=== PATIENT | female | born 1965 | race Asian ===

== ENCOUNTER 2017-04-20 09:44 | Outpatient (CLI) | payer OTHER ==
--- NOTE | 2017-04-20 13:09 | MRI Report ---
EXAM: LEFT KNEE MRI WITHOUT CONTRAST EXAM DATE: 04/20/2017 10:50 AM. CLINICAL HISTORY: Skiing injury December 2016. Posterior and medial pain. COMPARISON: None. TECHNIQUE: Multiplanar, multisequence T1-weighted and fluid-sensitive sequences of the knee without c ontrast. Other: None. FINDINGS: Cruciate ligaments: The anterior and posterior cruciate ligaments appear intact. There is some hetero genous signal involving the upper portion of the anterior cruciate ligament which could represent par tial tear at the femoral attachment. Medial meniscus: Intact. No tear is identified. Lateral meniscus: Intact. No tear is identified. Collateral ligaments: There is severe thickening, abnormal signal and morphology involving the upper fibers of the medial collateral ligament. Majority of fibers appear torn with a small number of fiber s remaining intact most consistent with a severe grade 2 injury. Fibular collateral ligament appears intact. Bones and articular surfaces: Mild cartilage thinning and irregularity in the patellofemoral compartm ent with small amount of patellar subchondral bone marrow edema. Minimal cartilage thinning in the me dial compartment. Small areas of marrow edema at the posterior margin of the lateral tibial plateau a nd periphery of the mid lateral femoral condyle. IMPRESSION: 1. Abnormal signal and morphology at the upper portion of the anterior cruciate ligament concerning f or at least partial tear. The presence of small residual bone contusions at the lateral tibial platea u and lateral femoral condyle raise possibility of a previous full-thickness ACL tear. Correlate with exam. 2. Severe grade 2 tear of the medial collateral ligament. [facility] MUSCULOSKELETAL RADIOLOGY SECTION Referring Provider Line: [phone] SITE ID: [id number]
== END 2017-04-20 09:45 | disposition home or self-care (01) ==
LOC: DI 09:44
PROVIDERS: ATTEND Family Medicine
DX: S83.412A Sprain of medial collateral ligament of left knee, initial encounter (principal)

== ENCOUNTER 2019-11-10 11:30 | Outpatient (CLI) | payer OTHER ==
[2019-11-10 12:23] LABS: BILIRUBIN,URINE NEGATIVE (NEGATIVE); GLUCOSE, URINE (UA) NEGATIVE (NEGATIVE); KETONES,URINE (UA) NEGATIVE (NEGATIVE); LEUKOCYTE ESTERASE, URINE NEGATIVE (NEGATIVE); NITRITE,URINE NEGATIVE (NEGATIVE); OCCULT BLOOD,URINE SMALL (NEGATIVE); PH,URINE 5.5 PH (5.0-7.5); PROTEIN,URINE NEGATIVE (NEGATIVE); UROBILINOGEN,URINE 0.2 (NORMAL) E.U./dL (NORMAL)
[2019-11-10 12:31] LABS: CALCIUM 9.2 mg/dL (8.5-10.3); CREATININE 0.7 mg/dL (0.4-1.0)
[2019-11-10 12:45] LABS: CLARITY,URINE CLEAR (CLEAR); HCG UR QUAL NEGATIVE
[2019-11-10 12:56] LABS: BACTERIA,URINE None Seen /HPF (None Seen); RBC,URINE 0-5 /HPF (0-5); SQUAMOUS EPITHELIAL CELL,UR NONE SEEN (<= Few)
[2019-11-10 13:08] LABS: BASOPHILS # (AUTO) 0.1 10^3/uL (0.0-0.1); BASOPHILS % (AUTO) 1.7 %; EOSINOPHILS # (AUTO) 0.4 10^3/uL (0.0-0.7); EOSINOPHILS % (AUTO) 8.9 %; HGB - HEMOGLOBIN 12.8 g/dL (12.0-16.0); LYMPHOCYTES # (AUTO) 1.4 10^3/uL (1.5-3.5); LYMPHOCYTES % (AUTO) 29.7 %; MEAN CORPUSCULAR HEMOGLOBIN 32.2 pg (27.0-31.0); MEAN CORPUSCULAR HGB CONC 33.1 g/dL (32.0-36.0); MEAN CORPUSCULAR VOLUME 97.5 fL (81.0-99.0); MEAN PLATELET VOLUME 9.9 fL (7.9-10.8); MONOCYTES # (AUTO) 0.4 10^3/uL (0.0-1.0); NEUTROPHILS # (AUTO) 2.4 10^3/uL (1.5-6.6); NEUTROPHILS % (AUTO) 51.5 %; PLT - PLATELET COUNT 317 10^3/uL (130-450); RED BLOOD COUNT 3.97 10^6/uL (4.20-5.40); RED CELL DISTRIBUTION WIDTH 11.9 % (12.0-15.0); WHITE BLOOD COUNT 4.7 x10^3/uL (4.8-10.8)
== END 2019-11-10 11:31 | disposition home or self-care (01) ==
LOC: DI 11:30
PROVIDERS: ATTEND Obstetrics & Gynecology
DX: Z01.812 Encounter for preprocedural laboratory examination (principal); N93.9 Abnormal uterine and vaginal bleeding, unspecified
CPT/HCPCS: 36415; 80048; 81001; 81025; 85025; 86850; 86900; 86901

== ENCOUNTER 2019-11-12 07:30 | Inpatient (IN) | payer OTHER ==
[2019-11-12] MEDS ORDERED: CEFAZOLIN SODIUM IN 0.9 % NACL 2 GM/100 ML BAG IV ONE (10:14)
[2019-11-12 11:12] LABS: HCG UR QUAL NEGATIVE
[2019-11-12] MEDS ORDERED: LACTATED RINGERS 1,000 ML IV ONE ×2 (11:17→18:33)
[2019-11-12] MEDS ORDERED: METOCLOPRAMIDE 10 MG/2 ML VIAL IVP PRN (11:31)
[2019-11-12] MEDS ORDERED: ONDANSETRON 4 MG/2 ML VIAL IVP PRN ×2 (11:31→19:05)
[2019-11-12] MEDS ORDERED: NALOXONE 0.4 MG/ML VIAL IVP PRN (11:31)
[2019-11-12] MEDS ORDERED: HYDROmorphone 0.5 MG/0.5 ML SYRINGE IVP PRN (11:31)
[2019-11-12] MEDS ORDERED: ATROPINE ABBOJECT 1 MG/10 ML SYRINGE IVP PRN (11:31)
[2019-11-12] MEDS ORDERED: fentaNYL 100 MCG/2 ML VIAL IVP PRN (11:31)
[2019-11-12] MEDS ORDERED: MORPHINE 2 MG/ML CARPUJECT IVP PRN (11:31)
[2019-11-12] MEDS ORDERED: ePHEDrine 50 MG/ML VIAL IVP PRN (11:31)
--- NOTE | 2019-11-12 11:31 | ANESTHESIA ---
Pre-Anesthesia VS, & Labs - Diagnosis AUB with simple hyperplasia without atypia - Procedure Total Laparoscopic Hysterectomy Vital Signs: Temp Pulse Resp BP Pulse Ox 36.8 C 50 L 16 119/67 100 11/12/19 10:30 11/12/19 10:30 11/12/19 10:30 11/12/19 10:30 11/12/19 10:30 Height 5 ft 1.81 in Weight (kg) 58.8 kg - NPO >8 hours - Is Patient ?: No - Lab Results Lab results reviewed: Yes Home Medications and Allergies Home Medications: Ambulatory Orders Albuterol Sulfate [Albuterol Sulfate Hfa] 8.5 gm IH PRN PRN 11/08/19 Dupilumab [Dupixent Syringe] 300 mg SQ 11/08/19 Fluticasone/Salmeterol [Advair 100-50 Diskus] 1 each IH 11/08/19 Venlafaxine [Effexor] 37.5 mg PO DAILY 11/08/19 Albuterol Sulfate [Albuterol Sulfate Hfa] 8.5 gm IH PRN PRN 11/08/19 Dupilumab [Dupixent Syringe] 300 mg SQ 11/08/19 Fluticasone/Salmeterol [Advair 100-50 Diskus] 1 each IH 11/08/19 Venlafaxine [Effexor] 37.5 mg PO DAILY 11/08/19 Allergies/Adverse Reactions: Allergies Allergy/AdvReac Type Severity Reaction Status Date / Time No Known Drug Allergies Allergy Verified 11/08/19 14:41 Anes History & Medical History - Anesthetic History Anesthesia Complications: reports: Slow wake-up Family history of Anesthesia Complications: Denies Family history of Malignant Hyperthermia: Denies - Medical History Cardiovascular: reports: Other Pulmonary: reports: Asthma Gastrointestinal: reports: None Urinary: reports: None Musculoskeletal: reports: None Endocrine/Autoimmune: reports: None Skin: reports: Other - Surgical History General: Colonoscopy, EGD Orthopedic: Arthroscopic surgery Exam General: Alert, Oriented x3, Cooperative, No acute distress Dental: WNL Mouth Openin Fingerbreadth Neck Mobility: Normal Mallampati classification: I Respiratory: Lungs clear, Normal breath sounds, No respiratory distress, No accessory muscle use Cardiovascular: Regular rate, Normal S1, Normal S2, No murmurs Plan Anesthesia Type: General Consent for Procedure(s) Verified and Reviewed: Yes Code Status: Attempt Resuscitation ASA classification: 2-Mild systemic disease Is this case an emergency?: No
[2019-11-12] MEDS ORDERED: LACTATED RINGERS 1,000 ML IV SCH ×2 (12:00→20:00)
[2019-11-12] MEDS ORDERED: BUPIVACAINE 0.25%-EPI 1:200000 PF 30 ML VIAL ONE (15:56)
[2019-11-12] MEDS ORDERED: BUPIVACAINE 0.25%-EPI 1:200000 PF 30 ML VIAL SUBQ ONE ×2 (15:58)
--- NOTE | 2019-11-12 18:58 | ANESTHESIA POST OP EVALUATION ---
Anesthesia Post Eval - Post Anesthesia Eval Vitals: Last Vital Signs Temp 36.8 C 11/12/19 18:52 Pulse 58 L 11/12/19 18:52 Resp 12 11/12/19 18:52 BP 133/70 H 11/12/19 18:52 Pulse Ox 95 11/12/19 18:52 CV Function Including HR & BP: positive: Stable Pain Control: positive: Satisfactory Nausea & Vomiting: positive: Negative Mental Status: positive: Patient Participates Respiratory Status: Airway Patent Hydration Status: Satisfactory Anesthesia Complications: positive: None
[2019-11-12] MEDS ORDERED: ALBUTEROL NEB 2.5 MG/3 ML INH PRN (19:02)
--- NOTE | 2019-11-12 19:11 | OPERATIVE REPORT ---
Operative Report - General Admit Date: 11/12/19 Procedure Date: 11/12/19 Planned Procedure: Total Laparoscopic Hysterectomy, bilateral salpingo-oophorectomy, cystoscopy Pre-Op Diagnosis: Abnormal uterine bleeding, simple endometrial hyperplasia without atypia Procedure Performed: Total Laparoscopic Hysterectomy, Bilateral Salpingo-oophorectomy, cystoscopy Post Op Diagnosis: Same as above - Procedure Note Primary Surgeon: Sun Secondary Surgeon: Chemo Anesthesia Provider: Ran Anesthesia Technique: General ET tube Pathology: 1. Uterus and cervix 2. Right ovary and fallopian tube 3. Left ovary and fallopian tube IV Fluids (mL): 1,500 (Lactated Ringers) Estimated Blood Loss (mL): 50 Urine Output (mL): 200 Indications: 54 year old female with abnormal uterine bleeding and simple endometrial hyperplasia without atypia on endometrial biopsy. Recommended for hysterectomy; she desired bilateral salpingo-oophorectomy at time hysterectomy as well. Patient was counseled and consented for the procedure. Findings: Exam under anesthesia: Approximately 9 week sized uterus, anteverted, with normal shape and contour. No adnexal masses. Laparoscopy: Uterus sounded to 9cm. Enlarged uterus, otherwise normal. Normal bilateral fallopian tubes and ovaries. Liver edge with mild superficial scarring. Normal gallbladder. Appendix not visualized. Cystoscopy: Intact bladder without sutures or defects. Brisk efflux of urine from bilateral ureteral orifices visualized. Complications: None - Other Other Information/Narrative: PROCEDURE: The patient was taken to the Operating Room. General anesthesia was performed without difficulty. She was placed in the lithotomy position in yellow-fin stirrups. The abdomen and vagina were prepped and draped in the usual sterile fashion. A Bailey catheter was placed. A surgical time out was performed. The uterus was sounded and cervix measured. The [employer]cul[employer] Nursing Techn with 4cm REKHA cup uterine manipulator was placed without difficulty, and attached to the [employer] Uterine Positioning System. Attention was turned to the patients abdomen where local skin anesthesia was injected at the planned umbilical and bilateral port sites. A 5 mm incision was made in the umbilicus with the scalpel blade. A 5mm incision was made at the inferior pole of the umbilicus, Veress needle placed and entry into the abdomen was confirmed with initial entry pressure of 3mm Hg. Pneumoperitoneum was obtained with maximum pressure of 15mm Hg. Entry into the abdominal cavity was performed with direct laparoscopic visualization with a disposable 5 mm trocar through the umbilical incision. Survey of the abdomen and pelvis revealed findings as noted above. Two 5 mm trocars were placed at the right and left lower quadrants. The 5 mm Ligasure forceps were then used for dissection. First the ureters were identified bilaterally coursing well below the infundibulopelvic and uteroovarian ligaments bilaterally. The infundibuloplevic, uteroovarian, and round ligaments were taken on the patients left, and the left adnexa detached from the uterus. A bladder flap was created by dissecting past the round ligament over the cervix from left to right. Dissection was then carried down to the uterine vessels. The infundibulopelvic, round and uteroovarian ligaments were taken on the right, adnexa detached, and bladder flap completed, and bladder bluntly dissected further caudad. Dissection then was carried down past the uterine vessels on the right to the cuff. The uterine vessels were then dissected on the patients left, and dissection carried to the cuff. Next, after the vaginal cuff balloon on the uterine manipulator was inflated, the vaginal cuff was incised circumferentially using the Bovie hook, starting midline posteriorly, and working around anteriorly to the midline from the patients right. The dissection was continued posteriorly over the patients left to meet anteriorly in the midline. The uterus and cervix were thus completely detached, and the uterus, cervix, and bilateral adnexa were withdrawn through the vagina and passed off the field. A sterile glove was placed in the vagina to maintain pneumoperitoneum. The pelvis was irrigated and all dissection sites found to be hemostatic. The ureters were again identified bilaterally, coursing below the field of dissection. The RLQ trocar was removed and the skin incision was extended to fit an 11mm trocar, which was inserted under direct visualization. The vaginal cuff was closed with the endostitch forceps, from patients left to right using 0 Polysorb V-loc suture. The RLQ trocar was removed. The Joselo-Elizabeth device was used to close the RLQ port fascia using 0 vicryl. The pneumoperitoneum was released. The glove was removed from the vagina and the bailey catheter removed. A diagnostic cystoscope was performed using a 70 degree cystoscope with saline distending medium. Approximately 300 mL of fluid was used to distend the bladder. The bladder mucosa was evaluated and noted to be free of injury or suture material. Bilateral efflux of urine was seen from bilateral ureteral orifices. The cystoscope was removed and the bailey catheter replaced. The remaining 5mm trocars were removed from the abdomen. All incision sites were closed with 4-0 monocryl in subcuticular fashion and covered with Dermbond. The patient was then taken out of lithotomy position, undraped and put into the supine position, awoken and then transferred to the Post-Anesthesia Care Unit in stable condition. All counts were read as correct at the end of the case.
[2019-11-12] MEDS: LACTATED RINGERS 1,000 ML IV SCH (19:58)
[2019-11-12] MEDS ORDERED: KETOROLAC 30 MG/ML VIAL IVP SCH (20:00)
[2019-11-12] MEDS: ACETAMINOPHEN 500 MG TABLET PO SCH (20:10)
[2019-11-12] MEDS: SIMETHICONE CHEW 80 MG TABLET PO SCH (21:17)
[2019-11-12] MEDS: DOCUSATE SODIUM 100 MG CAPSULE PO SCH (21:17)
[2019-11-12] MEDS: MORPHINE 10 MG/ML VIAL IVP PRN (21:49)
[2019-11-13] MEDS: KETOROLAC 30 MG/ML VIAL IVP SCH ×4 (01:34→18:08)
[2019-11-13] MEDS: ACETAMINOPHEN 500 MG TABLET PO SCH ×2 (04:51→11:58)
[2019-11-13 05:22] LABS: BASOPHILS % (AUTO) 0.4 %; HGB - HEMOGLOBIN 11.5 g/dL (12.0-16.0); LYMPHOCYTES % (AUTO) 9.1 %; MEAN CORPUSCULAR HEMOGLOBIN 32.9 pg (27.0-31.0); MEAN CORPUSCULAR HGB CONC 33.4 g/dL (32.0-36.0); MEAN CORPUSCULAR VOLUME 98.3 fL (81.0-99.0); MEAN PLATELET VOLUME 9.5 fL (7.9-10.8); MONOCYTES # (AUTO) 0.6 10^3/uL (0.0-1.0); MONOCYTES % (AUTO) 5.5 %; NEUTROPHILS # (AUTO) 9.3 10^3/uL (1.5-6.6); NEUTROPHILS % (AUTO) 84.4 %; PLT - PLATELET COUNT 237 10^3/uL (130-450); RED CELL DISTRIBUTION WIDTH 11.9 % (12.0-15.0); WHITE BLOOD COUNT 11.1 x10^3/uL (4.8-10.8)
[2019-11-13] MEDS: LACTATED RINGERS 1,000 ML IV SCH (06:31)
[2019-11-13] MEDS: SIMETHICONE CHEW 80 MG TABLET PO SCH ×2 (06:32→13:46)
[2019-11-13] MEDS ORDERED: DEXAMETHASONE 4 MG/ML VIAL IVP ONE (08:09)
[2019-11-13] MEDS ORDERED: LIDOCAINE-MPF 2% 5 ML VIAL IM ONE (08:09)
[2019-11-13] MEDS ORDERED: ROCURONIUM 50 MG/5 ML VIAL IVP ONE (08:09)
[2019-11-13] MEDS ORDERED: GLYCOPYRROLATE 1 MG/5 ML VIAL IVP ONE (08:09)
[2019-11-13] MEDS ORDERED: ONDANSETRON 4 MG/2 ML VIAL IVP ONE (08:09)
[2019-11-13] MEDS ORDERED: ePHEDrine 50 MG/ML VIAL IVP ONE (08:09)
[2019-11-13] MEDS ORDERED: HYDROmorphone 1 MG/ML CARPUJECT IVP ONE (08:09)
[2019-11-13] MEDS ORDERED: KETOROLAC 30 MG/ML VIAL IVP ONE (08:09)
[2019-11-13] MEDS ORDERED: PROPOFOL 200 MG/20 ML VIAL IVP ONE (08:09)
[2019-11-13] MEDS ORDERED: fentaNYL 100 MCG/2 ML VIAL IVP ONE (08:09)
[2019-11-13] MEDS ORDERED: VENLAFAXINE 37.5 MG TABLET PO SCH (09:00)
[2019-11-13] MEDS ORDERED: ENOXAPARIN 40 MG/0.4 ML SYRINGE SUBQ SCH (09:00)
[2019-11-13] MEDS: MORPHINE 10 MG/ML VIAL IVP PRN (09:32)
[2019-11-13] MEDS: DOCUSATE SODIUM 100 MG CAPSULE PO SCH (09:33)
--- NOTE | 2019-11-13 11:22 | PROVIDER PROGRESS NOTE ---
Subjective - General Admit Date: 11/12/19 Procedure Date: 11/12/19 Post Op Days: 1 Procedure Performed: TLH/BSO/cystoscopy - Review of Systems Wound/Incisions: positive: Healing well, Dressing dry and intact, No drainage Functional Status: positive: 1, 2, 3, 4 General: positive: No symptoms HEENT: positive: No symptoms Pulmonary: positive: No symptoms Cardiovascular: positive: No symptoms Gastrointestinal: positive: Nausea (mild nausea with taking medication initially, improving) Genitourinary: positive: No symptoms Musculoskeletal: positive: Other (Pelvic pain consistent with surgery) Skin: positive: No symptoms Psychiatric: positive: No symptoms All Other Systems: positive: Reviewed and negative - Other Other Information/Narrative: 54yof now POD#1 s/p uncomplicated TLH/BSO/cystoscopy, doing well. Aside from small nausea with initially taking medications by mouth, she feels well and has no complaints. Good UOP overnight. Pt was seen at 0700. Afebrile, VSS Gen: NAD Resp: nonlabored breathing CV: no edema Abd: soft, appropriately tender at lower quadrants. LSC skin incisions with mild ecchymosis, nontender. : scant blood on peripad, bailey catheter in place. Ext: nontender, SCDs in place Labs: post-op HCT 34 A/P: POD#1 s/p hysterectomy, doing well. No e/o infection. - continue routine post-op care - d/c bailey at 12 hours post-op or after ambulation; Due-to-void within 4-6 hours of bailey removal. - if doing well for the rest of the day, anticipate discharge home later on this afternoon/early evening. MD Maite LEGISLATIVE ANALYST [phone] cell [phone] office Objective - Patient Data Vital Signs: Vital Signs x48h Temp Pulse Resp BP Pulse Ox 11/13/19 08:08 98.2 F 52 L 17 112/58 L 97 11/13/19 05:00 98.4 F 52 L 18 118/60 99 Intake & Output: Intake and Output Totals x24h 11/11/19 11/12/19 11/13/19 23:59 23:59 23:59 Intake Total 320 1910 Output Total 450 920 Balance -130 990 - Lab Results Lab Results: 11/13/19 05:20 Other Lab Results: Lab Results x24hrs 11/13/19 Range/Units 05:20 WBC 11.1 H (4.8-10.8) x10^3/uL RBC 3.50 L (4.20-5.40) 10^6/uL Hgb 11.5 L (12.0-16.0) g/dL Hct 34.4 L (37.0-47.0) % MCV 98.3 (81.0-99.0) fL MCH 32.9 H (27.0-31.0) pg MCHC 33.4 (32.0-36.0) g/dL RDW 11.9 L (12.0-15.0) % Plt Count 237 (130-450) 10^3/uL MPV 9.5 (7.9-10.8) fL Neut # (Auto) 9.3 H (1.5-6.6) 10^3/uL Lymph # (Auto) 1.0 L (1.5-3.5) 10^3/uL Piute # (Auto) 0.6 (0.0-1.0) 10^3/uL Eos # (Auto) 0.0 (0.0-0.7) 10^3/uL Baso # (Auto) 0.0 (0.0-0.1) 10^3/uL Absolute Nucleated RBC 0.00 x10^3/uL Nucleated RBC % 0.0 /100WBC - Current Medications Current Medications: Current Medications Generic Name Dose Route Start Last Admin Trade Name Jo PRN Reason Stop Dose Admin Acetaminophen 1,000 mg 11/12/19 20:00 11/13/19 04:51 Tylenol PO 1,000 mg Q8H EVERETTE Administration Docusate Sodium 100 mg 11/12/19 21:00 11/13/19 09:33 Colace 100mg Capsule PO 100 mg BID EVERETTE Administration Enoxaparin Sodium 40 mg 11/13/19 09:00 11/13/19 09:33 Lovenox SUBQ 40 mg DAILY EVERETTE Administration Lactated Ringer's 1,000 mls @ 100 mls/hr 11/12/19 20:00 11/13/19 06:31 Lr IV 100 mls/hr .Q10H EVERETTE Administration Ketorolac Tromethamine 30 mg 11/13/19 00:00 11/13/19 06:32 Toradol Inj (30mg) IVP 11/13/19 18:01 30 mg Q6H EVERETTE Administration Morphine Sulfate 5 mg 11/12/19 19:47 11/13/19 09:32 Morphine 10mg Vial IVP 5 mg Q3HR PRN Administration PAIN Simethicone 80 mg 11/12/19 22:00 11/13/19 06:32 Mylicon PO 80 mg TID EVERETTE Administration Venlafaxine HCl 37.5 mg 11/13/19 09:00 11/13/19 09:33 Effexor PO 37.5 mg DAILY EVERETTE Administration
--- NOTE | 2019-11-13 19:21 | DISCHARGE SUMMARY ---
"Discharge Summary Admit Date: 11/12/19 Discharge Date: 11/13/19 Discharging Provider: Sun Code Status: Attempt Resuscitation Condition at Discharge: Good Discharge Disposition: 01 Home, Self Care - DIAGNOSES Admission Diagnoses: Abnormal uterine bleeding, simple endometrial hyperplasia without atypia Discharge Diagnoses with Status of Each Condition: Abnormal uterine bleeding - resolved; simple endometrial hyperplasia without atypia - resolved - HPI History of Present Illness: 54yof with abnormal uterine bleeding, with endometrial biopsy showing simple endometrial hyperplasia without atypia, recommended for hysterectomy. - CONSULTS | PROCEDURES Consultations: None Procedures: Total Laparoscopic Hysterectomy, bilaterral salpingo-oophorectomy, cystoscopy - HOSPITAL COURSE Hospital Course: The patient underwent uncomplicated hysterectomy, bilateral salpingectomy, and cystoscopy. Her post-operative course was unremarkable. By POD#1 she was tolerating a regular diet, ambulating, voiding spontaneously, and had good pain control on oral pain medications. She was meeting discharge criteria and was discharged home in stable condition. - ALLERGIES Allergies/Adverse Reactions: Allergies Allergy/AdvReac Type Severity Reaction Status Date / Time No Known Drug Allergies Allergy Verified 11/08/19 14:41 - MEDICATIONS Home Medications: Ambulatory Orders Medication Instructions Recorded Confirmed Albuterol Sulfate [Albuterol 8.5 gm IH PRN PRN 11/08/19 11/12/19 Sulfate Hfa] Dupilumab [Dupixent Syringe] 300 mg SQ Q14D 11/08/19 11/13/19 Fluticasone/Salmeterol [Advair 1 each IH DAILY 11/08/19 11/13/19 100-50 Diskus] Venlafaxine [Effexor] 37.5 mg PO DAILY 11/08/19 11/12/19 Home Medications Other | Comments: Ibuprofen - take 600mg by mouth every 6 hours as needed for pain; take with food. Acetaminophen - take 500-1000 mg by mouth every 6 hours as needed for pain. Oxycodone 5mg (previously prescribed) - take 1/2 tablet to 1 tablet every 6 hours as needed for pain not controlled by ibuprofen or acetaminophen. Colace (docusate sodium) - take 100mg by mouth twice a day as needed to have soft bowel movements. Simethicone - chew 80mg every 6 hours as needed for gas pain/bloating. - PHYSICAL EXAM AT DISCHARGE General Appearance: positive: No acute distress Eyes Bilateral: positive: Normal inspection ENT: positive: ENT inspection nml Neck: positive: Nml inspection Respiratory: positive: No respiratory distress Cardiovascular: positive: Regular rate & rhythm Peripheral Pulses: positive: 2+ Abdomen: positive: No distention, Tenderness (mild tenderness appropriate for post-surgical state) Back: positive: Nml inspection Skin: positive: Color nml Extremities: positive: Non-tender, No pedal edema, Calf tenderness Neurologic/Psychiatric: positive: Oriented x3, Motor nml, Sensation nml, Mood/affect nml - LABS Result Diagrams: 11/13/19 05:20 - FOLLOW UP Follow Up: Scheduled follow up at [facility] ) with Dr. Garsia on [id number]. - TIME SPENT Time Spent in Discharge (Minutes): 15"
[2019-11-13 19:23] VITALS: BP 124/68
--- NOTE | 2019-11-13 19:36 | Discharge Plan ---
Discharge Plan Problem Reviewed?: Yes Disposition: Home, Self Care Condition: Good No Smoking: If you smoke, Please STOP! Call for help. Follow-up with: Bernard Mccray MD [Primary Care Provider] -
[2019-11-14] MEDS ORDERED: SALMETEROL IH SCH (09:00)
[2019-11-14] MEDS ORDERED: FLUTICASONE IH SCH (09:00)
== END 2019-11-13 19:48 | disposition home or self-care (01) | DRG 743 ==
LOC: MS2 10:29 → MS3 13:04
PROVIDERS: ADMIT Obstetrics & Gynecology; ATTEND Obstetrics & Gynecology
PROC: 0UT24ZZ Resection of Bilateral Ovaries, Percutaneous Endoscopic Approach (ICD-10-PCS; 2019-11-12)
PROC: 0UT74ZZ Resection of Bilateral Fallopian Tubes, Percutaneous Endoscopic Approach (ICD-10-PCS; 2019-11-12)
PROC: 0UT94ZZ Resection of Uterus, Percutaneous Endoscopic Approach (ICD-10-PCS; principal; 2019-11-12 11:30)
DX: N93.9 Abnormal uterine and vaginal bleeding, unspecified (principal); N85.01 Benign endometrial hyperplasia; N83.292 Other ovarian cyst, left side; N83.291 Other ovarian cyst, right side; F32.9 Major depressive disorder, single episode, unspecified
CPT/HCPCS: 36415; 81025; 85025; A9270; J0690; J1170; J1650; J7120